=== PATIENT | male | born 1955 | race Caucasian/White ===

== ENCOUNTER 2018-11-02 21:13 | Emergency (ER) | payer MEDICARE, OTHER ==
[~2018-11-02] VITALS: Ht 182.9 cm; Wt 83.0 kg
[2018-11-02 21:49] VITALS: Ht 182.9 cm; Wt 83.0 kg
--- NOTE | 2018-11-03 22:14 | ERD ---
ER Documentation Chief Complaint Chief Complaint RIGHT FLANK PAIN; SEEN AT CLINIC, GIVEN RX HPI Pt is a 63 year old M recently treated for an incarcerated right inguinal hernia presents to the ED with complaints of intermittent right flank pain. He was seen at a clinic earlier today where a UA was done revealing hematuria and pyuria. He was subsequently sent here for further evaluation and treatment. Pt states that he was seen here about 2.[address] of the abd done revealing a 3cm right sided kidney stone and incarcerated right inguinal hernia. He was burns sferred to [facility] for hernia repair but no treatment was required for his kidney stone. He reports a dull 5/10, intermittent right flank pain since then, controlled with Ibuprofen. He admits to not drinking alot of water. Denies any fevers, chills, nausea, vomiting, abdominal pain, dysuria, frequency, urgency or oliguria. No other complaints. ROS All systems reviewed and are negative except as per history of present illness. Allergies Allergies: Coded Allergies: No Known Allergy (Unverified , 10/10/18) PMhx/Soc History of Surgery: No Anesthesia Reaction: No Hx Neurological Disorder: No Hx Respiratory Disorders: No Hx Cardiac Disorders: Yes (HTN) Hx Psychiatric Problems: No Hx Miscellaneous Medical Probl: Yes (Nephrolithiasis;BPH) Hx Alcohol Use: Yes (Formerly last intake 1998; AA member) Hx Substance Use: No Hx Tobacco Use: Yes (Cigarettes last smoke 1998) Smoking Status: Former smoker Physical Exam Vitals Vital Signs Date Temp Pulse Resp B/P (MAP) Pulse Ox O2 O2 Flow FiO2 Time Delivery Rate 11/02/18 97.6 69 16 178/98 21:49 (124) Physical Exam Const: No acute distress Head: Atraumatic Eyes: Normal Conjunctiva ENT: Normal External Ears, Nose and Mouth. Neck: Full range of motion. No meningismus. Resp: Clear to auscultation bilaterally Cardio: Regular rate and rhythm, no murmurs Abd: Soft, non tender, non distended. Normal bowel sounds Skin: No petechiae or rashes Back: No midline or flank tenderness Ext: No cyanosis, or edema Neur: Awake and alert Psych: Normal Mood and Affect Results 24 hrs Laboratory Tests Test 11/03/18 02:15 Urine Color YELLOW Urine Clarity SLIGHTLY CLOUDY Urine pH 5.0 Urine Specific [place]ass 1.026 Urine Ketones TRACE mg/dL Urine Nitrite NEGATIVE mg/dL Urine Bilirubin NEGATIVE mg/dL Urine Urobilinogen 1+ mg/dL Urine Leukocyte Esterase TRACE Elise/ul Urine Microscopic RBC 51 /HPF Urine Microscopic WBC 7 /HPF Urine Squamous Epithelial Cells FEW /HPF Urine Mucus FEW /HPF Urine Hemoglobin 1+ mg/dL Urine Glucose NEGATIVE mg/dL Urine Total Protein NEGATIVE mg/dl Procedures/MDM EMERGENT LABS AND DIAGNOSTIC STUDIES: Lab Results above were reviewed and interpreted by me as below. Urine: 51 RBC, 1+ hgb, trace leuks, nitrite negative Nursing Notes Reviewed. Previous Medical Records requested via the Electronic Health Record. EMERGENCY DEPARTMENT COURSE / MEDICAL DECISION MAKING: This is a 63 yo M with renal colic. Review of old records reveal that pt had a CT abd done less than a month ago which revealed a 2.8 x 3.7mm stone in the proximal right ureter. Since the patient has a known history of recent kidney stone and presents with pain typical of their renal colic, an Abdominal/Pelvis CT was not performed. He is afebrile with stable vital signs. No evidence of an acute surgical abdomen on physical exam. UA revealed hematuria and pyuria however pt was not having any urinary symptoms so I doubt true cystitis or pyelonephritis. Hematuria most consistent with a renal stone. I discussed these results with the patient. I recommended he increase his fluid intake, take ibuprofen for pain and follow up with his PCP for urologist referral. Strict return precautions given. Prior to discharge, patients vital signs have been reviewed PRESCRIPTIONS: None, pt has Ibuprofen at [employer] FOLLOW UP RECOMMENDED: Urology Patient has been advised to follow up with primary care in 1-2 days. Patient's blood pressure was elevated (>120/80) but appears stable without evidence of hypertension emergency or urgency. The patient was counseled about the risks of hypertension and urged to pursue outpatient monitoring and therapy within a week with their primary care physician Departure Diagnosis: Primary Impression: Kidney stone Condition: Stable Patient Instructions: Kidney Stone (Urine) Referrals: KODI UNDERWOOD MD, MEHRAN RAMIN, SOROUSH [facility] YOU HAVE RECEIVED A MEDICAL SCREENING EXAM AND THE RESULTS INDICATE THAT YOU DO NOT HAVE A CONDITION THAT REQUIRES URGENT TREATMENT IN THE EMERGENCY DEPARTMENT. FURTHER EVALUATION AND TREATMENT OF YOUR CONDITION CAN WAIT UNTIL YOU ARE SEEN IN YOUR DOCTORS OFFICE WITHIN THE NEXT 1-2 DAYS. IT IS YOUR RESPONSIBILITY TO MAKE AN APPOINTMENT FOR FOLOW-UP CARE. IF YOU HAVE A PRIMARY DOCTOR --you should call your primary doctor and schedule an appointment IF YOU DO NOT HAVE A PRIMARY DOCTOR YOU CAN CALL OUR PHYSICIAN REFERRAL HOTLINE AT IF YOU CAN NOT AFFORD TO SEE A PHYSICIAN YOU CAN CHOSE FROM THE FOLLOWING [facility] [address] [facility]. [facility] [address] [facility] [address] [facility] [facility] [address] [facility] [facility] [address] [facility] [facility] [address] [facility]. [facility]. [address] Additional Instructions: Increase your water intake, and take the ibuprofen for pain relief. Your symptoms are related to a kidney stone. If you develop worsening pain, nausea, vomiting, fevers return to the ED. Otherwise follow-up with your regular doctor in 2 days. ADRIANE HOLDEN PA-C Nov 03, 2018 22:14
== END 2018-11-03 03:16 | disposition home or self-care (01) ==
LOC: FTE 21:13
DX: N20.0 Calculus of kidney (principal); I10 Essential (primary) hypertension; Z87.891 Personal history of nicotine dependence
CPT/HCPCS: 81001; 99283